=== PATIENT | male | born 1995 | race Caucasian/White ===

== ENCOUNTER 2016-03-25 04:43 | Emergency (ER) | payer BC ==
[~2016-03-25] VITALS: Ht 170.2 cm; Wt 56.8 kg
[~2016-03-25 04:43] MED LIST: OXYC1TAB3 PO; PRED20TA PO
[2016-03-25 04:45] VITALS: Ht 170.2 cm; Wt 56.8 kg
[2016-03-25] MEDS ORDERED: SODIUM CHLORIDE 0.9% 1000ML 1,000 ML IV STA (04:51)
[2016-03-25] MEDS ORDERED: ONDANSETRON INJ 2 MG/ML 2 ML VIAL IV STA (04:51)
[2016-03-25 05:13] LABS: BASO % 0.3 %; BASO ABS # 0.02 K/uL (0-0.2); COMPLETE YES; EOS % 1.3 %; HEMATOCRIT 45.6 % (42-52); IG% 0.1 %; LYMPH % 28.2 %; LYMPH ABS # 2.15 K/uL (1.2-3.4); MEAN CORPUSCULAR HEMOGLOBIN 29.7 pg (25-34); MEAN CORPUSCULAR HGB CONC 33.8 g/dl (32-36); MEAN PLATELET VOLUME 8.9 fL (7.4-10.4); MONO % 9.4 %; NEUT % 60.7 %; PLATELET COUNT 338 K/uL (130-400); RED BLOOD COUNT 5.18 M/uL (4.7-6.1); WHITE BLOOD COUNT 7.63 K/uL (4.8-10.8)
[2016-03-25] MEDS ORDERED: HYDROmorphone INJ 0.5 MG/0.5 ML SYR IV STA (05:17)
[2016-03-25 05:22] LABS: PARTIAL THROMBOPLASTIN RATIO 1.2; PROTHROMBIN TIME (PATIENT) 10.8 SECONDS (9.0-12.0)
[2016-03-25] MEDS ORDERED: ACET-1311 PO (05:22)
[2016-03-25] MEDS ORDERED: IBUP-1450 PO (05:22)
[2016-03-25 05:36] LABS: BUN/CREATININE RATIO 10.4 (10-20); CALCIUM 9.4 mg/dl (8.5-10.1); CREATININE 1.2 mg/dl (0.60-1.40); POTASSIUM 3.8 mmol/L (3.5-5.1)
[2016-03-25] MEDS ORDERED: SUCCINYLCHOLINE CHLORIDE 20 MG/ML 10 ML VIAL IV ONE (05:44)
[2016-03-25] MEDS ORDERED: PROPOFOL IV EMULSION 10 MG/ML 20 ML VIAL IV ONE (05:44)
[2016-03-25] MEDS ORDERED: LIDOCAINE HCL 2% 2 ML VIAL (20MG/ML) ONE (05:44)
[2016-03-25 05:45] VITALS: O2SAT 100
[2016-03-25] MEDS ORDERED: MIDAZOLAM HCL 1 MG/ML 2ML VIAL ONE (05:45)
[2016-03-25] MEDS ORDERED: FENTANYL CITRATE INJ 50 MCG/1 ML 2 ML VIAL ONE (05:46)
--- NOTE | 2016-03-25 05:47 | History and Physical ---
History & Physical Date Mar 25, 2016. Chief Complaint Tonsillar bleed History of Present Illness The patient is a 20 year old male with complaints of acute tonsillar bleed Past Medical/Surgical History Medical Problems: (1) Renal agenesis Surgical Problems: (1) S/P wisdom tooth extraction Additional History Hepatic Disease: No Endocrine Disorder: No Kidney Disease: No Hypertension: No Heart Disease: No Bleeding Tendencies: No Infectious Diseases: No Allergies Coded Allergies: No Known Allergies (Unverified , 03/25/16) Home Medications Scheduled Acetaminophen (Tylenol), 650 MG PO DIRECTED Scheduled PRN Ibuprofen (Motrin), 200-600 MG PO DIRECTED PRN for Pain or Fever Physical Examination Skin: warm/dry, no rash Eyes: normal inspection, EOMI, sclerae normal ENT: normal ENT inspection, pharynx normal, + pertinent finding (clot left fossa, BRB) Head: normocephalic, atraumatic Neck: supple, no adenopathy, trachea midline Respiratory/Chest: lungs clear, normal breath sounds, no respiratory distress Cardiovascular: regular rate, rhythm, no edema, no murmur Abdomen / GI: normal bowel sounds, non tender Back: normal inspection Extremities: normal inspection, normal range of motion Neurologic/Psych: no motor/sensory deficits, alert, normal reflexes, oriented x 3 Diagnosis acute tonsillar bleed Plan of Treatment hemostasis of tonsillar bleed
[2016-03-25] MEDS ORDERED: HYDR1SOL10 PO (05:55)
[2016-03-25] MEDS ORDERED: SODIUM CHLORIDE 0.9% 1000ML 1,000 ML IV SCH (05:57)
--- NOTE | 2016-03-25 05:57 | Discharge Instructions ---
Discharge Instructions Admission Reason for Admission: S/P Tonsilectomy - Bleeding Discharge Discharge Diagnosis / Problem: same Discharge Goals Goal(s): Therapeutic intervention Activity Recommendations Activity Limitations: resume your previous activity . Instructions / Follow-Up Instructions / Follow-Up ACTIVITY RECOMMENDATIONS: * During the first few days, activities should be limited. * Stay indoors for several days. * After 48 hours, activity can gradually be increased to normal activity. RETURN TO SCHOOL/WORK: * Return to school or work in one week. * No physical education for two weeks. OVER THE COUNTER MEDICATIONS: * You may use Tylenol * Avoid aspirin or aspirin containing products, e.g. as they may increase bleeding. SPECIAL CARE INSTRUCTIONS: * Avoid coughing or clearing the throat. * Do not use a straw. * A sore throat is expected frequently accompanied by pain radiating to the ears. This is normal. * Expect bad breath until "scabs" are healed. * Notify the doctor if bleeding occurs, vomiting, temperature greater than 101 degrees Fahrenheit. Call or cell phone: . * If bleeding occurs, it is usually in the first 24 hours or after the 5th day. If unable to reach the doctor, go to the nearest Emergency Department. Special Diet: * Fluids are very important and should be encouraged to maintain adequate hydration. * To maintain nutrition, eat soft foods and after 48 hours the consistency of foods can be increased. Examples are jello, soup, pasta, ice cream and mashed foods. FOLLOW UP VISIT: Follow-up visit with Dr. Larsen in 2 weeks. Please call to schedule if not already scheduled. Current Hospital Diet Patient's current hospital diet: Discharge Diet Recommended Diet: Regular Diet, Clear Liquid Diet Diet Texture: Mechanical Soft (ground) Pending Studies Studies pending at discharge: no Medical Emergencies . Who to Call and When: Medical Emergencies: If at any time you feel your situation is an emergency, please call [phone] immediately. . Non-Emergent Contact Non-Emergency issues call your: Primary Care Provider . "Provider Documentation" section prepared by Lena Larsen. VTE Core Measure Inpt VTE Proph given/why not?: Treatment not indicated [place] Drug Monitoring Program Search Results: no issues identified
[2016-03-25] MEDS ORDERED: ACETAMINOPHEN/HYDROCODONE ELIX 15 ML/CUP UDP PO PRN (06:00)
[2016-03-25] MEDS ORDERED: BUPIVACAINE 0.5% W/EPI 1:200,000 INJ ONE (06:39)
[2016-03-25] MEDS ORDERED: OXYC-57 PO (07:00)
[2016-03-25 07:30] VITALS: O2SAT 98
[2016-03-25] MEDS ORDERED: MoRPHine SULFATE 4 MG/ML 1 ML CARP\\VIAL ONE (07:34)
--- NOTE | 2016-03-25 07:43 | Anesthesiology Progress Note ---
Anesthesia Post Op Note Date & Time Mar 25, 2016 at 07:42 Vital Signs Pain Intensity: 6.0 Vital Signs Past 12 Hours Date Time Temp Pulse Resp B/P Pulse Ox O2 Delivery O2 Flow Rate FiO2 03/25/16 07:30 68 17 135/85 98 Room Air 03/25/16 07:20 73 16 138/95 99 Room Air 03/25/16 07:13 67 19 136/92 100 Mask 10 03/25/16 07:03 36.1 78 15 135/84 100 Mask 10 03/25/16 05:45 73 17 116/68 100 03/25/16 05:01 73 03/25/16 05:01 100 Room Air 03/25/16 04:45 36.5 104 20 127/66 99 Room Air Notes Mental Status: alert / awake / arousable, participated in evaluation Pt Amnestic to Procedure: Yes Nausea / Vomiting: adequately controlled Pain: adequately controlled Airway Patency, RR, SpO2: stable & adequate BP & HR: stable & adequate Hydration State: stable & adequate Anesthetic Complications: no major complications apparent
[2016-03-25 07:45] VITALS: BP 138/78; PULSE 66; TEMP 36.5
[2016-03-25] MEDS ORDERED: EpHEDrine SULFATE INJ 50 MG/ML AMP IV PRN (07:45)
[2016-03-25] MEDS ORDERED: FENTANYL CITRATE INJ 50 MCG/1 ML 2 ML VIAL IV PRN (07:45)
[2016-03-25] MEDS ORDERED: ATROPINE SULFATE 0.1 MG/ML 5ML SYR IV PRN (07:45)
[2016-03-25] MEDS ORDERED: NURSING VERBAL MED ORDER ONE (07:45)
--- NOTE | 2016-03-25 07:56 | EMERGENCY ROOM VISIT NOTE ---
History Report prepared by Chavez: Lyndon Mckinley Under the Supervision of: Dr. Bobby Pratt M.D. First contact with patient: 04:48 Chief Complaint: THROAT PAIN/INJURY Stated Complaint: S/P TONSILECTOMY - BLEEDING History of Present Illness The patient is a 20 year old male who presents to the Emergency Room with complaints of persistent bleeding s/p tonsillectomy that started last night. The patient was diagnosed with tonsillitis and a tonsillar abscess on February 08. He had the surgery with Dr. Shore one week ago. The patient vomited secondary to the bleeding. The patient denies any fevers. The patient has not been taking Aspirin. Source of History: patient Onset: last night Position: other (tonsillectomy site) Quality: other (bleeding) Timing: other (persistent) Associated Symptoms: No fevers, No vomiting Review of Systems See HPI for pertinent positives & negatives. A total of 10 systems reviewed and were otherwise negative. Past Medical & Surgical Medical Problems: (1) Renal agenesis Surgical Problems: (1) S/P wisdom tooth extraction Family History No pertinent family history Social History Smoking Status: Never Smoker Alcohol Use: occasionally Marital Status: single Housing Status: lives with roommate Occupation Status: [employer] student Current/Historical Medications Scheduled Acetaminophen (Tylenol), 650 MG PO DIRECTED Scheduled PRN Hydrocodone-Acetaminophen (Hydrocodone/Acetami 7.5/325MG 15ML), 15 ML PO Q4H PRN Ibuprofen (Motrin), 200-600 MG PO DIRECTED PRN for Pain or Fever Oxycodone/Acetaminophen 5MG/325MG (Percocet 5MG/325MG), 1-2 TABLETS PO Q4H PRN for Pain Allergies Coded Allergies: No Known Allergies (Unverified , 03/25/16) Physical Exam Vital Signs Date Time Temp Pulse Resp B/P Pulse Ox O2 Delivery O2 Flow Rate FiO2 03/25/16 07:30 68 17 135/85 98 Room Air 03/25/16 07:20 73 16 138/95 99 Room Air 03/25/16 07:13 67 19 136/92 100 Mask 10 03/25/16 07:03 36.1 78 15 135/84 100 Mask 10 03/25/16 05:45 73 17 116/68 100 03/25/16 05:01 73 03/25/16 05:01 100 Room Air 03/25/16 04:45 36.5 104 20 127/66 99 Room Air Physical Exam GENERAL: Patient is uncomfortable appearing in moderate distress. HEENT: No acute trauma, normocephalic atraumatic, mucous membranes moist, no nasal congestion, no scleral icterus. Blood throughout the oropharynx, large bloody clot on the left tonsillar bed, some scar tissue and granulation tissue at the right tonsillar bed. NECK: No stridor, no adenopathy, no meningismus, trachea is midline. LUNGS: No dyspnea. Clear to auscultation and equal bilaterally. No wheeze, no rhonchi. HEART: Mildly tachycardic, regular rhythm. No murmurs, rubs, gallops appreciated. ABDOMEN: Soft, nontender, bowel sounds positive, no masses appreciated, no peritonitis. BACK: No midline tenderness, no CVA tenderness EXTREMITIES: Normal motion all extremities, no cyanosis, no edema. NEUROLOGIC: Alert and oriented, no acute motor or sensory deficits, no focal weakness, cranial nerves grossly intact. SKIN: No rash, no jaundice, no diaphoresis. Medical Decision & Procedures Laboratory Results 03/25/16 04:55 Red Blood Count 5.18, Mean Corpuscular Volume 88.0, Mean Corpuscular Hemoglobin 29.7, Mean Corpuscular Hemoglobin Concent 33.8, Mean Platelet Volume 8.9, Neutrophils (%) (Auto) 60.7, Lymphocytes (%) (Auto) 28.2, Monocytes (%) (Auto) 9.4, Eosinophils (%) (Auto) 1.3, Basophils (%) (Auto) 0.3, Neutrophils # (Auto) 4.63, Lymphocytes # (Auto) 2.15, Monocytes # (Auto) 0.72, Eosinophils # (Auto) 0.10, Basophils # (Auto) 0.02 03/25/16 04:55 Test 03/25/16 04:55 White Blood Count 7.63 K/uL (4.8-10.8) Red Blood Count 5.18 M/uL (4.7-6.1) Hemoglobin 15.4 g/dL (14.0-18.0) Hematocrit 45.6 % (42-52) Mean Corpuscular Volume 88.0 fL (80-100) Mean Corpuscular Hemoglobin 29.7 pg (25-34) Mean Corpuscular Hemoglobin Concent 33.8 g/dl (32-36) Platelet Count 338 K/uL (130-400) Mean Platelet Volume 8.9 fL (7.4-10.4) Neutrophils (%) (Auto) 60.7 % Lymphocytes (%) (Auto) 28.2 % Monocytes (%) (Auto) 9.4 % Eosinophils (%) (Auto) 1.3 % Basophils (%) (Auto) 0.3 % Neutrophils # (Auto) 4.63 K/uL (1.4-6.5) Lymphocytes # (Auto) 2.15 K/uL (1.2-3.4) Monocytes # (Auto) 0.72 K/uL (0.11-0.59) Eosinophils # (Auto) 0.10 K/uL (0-0.5) Basophils # (Auto) 0.02 K/uL (0-0.2) RDW Standard Deviation 39.4 fL (36.4-46.3) RDW Coefficient of Variation 12.3 % (11.5-14.5) Immature Granulocyte % (Auto) 0.1 % Immature Granulocyte # (Auto) 0.01 K/uL (0.00-0.02) Prothrombin Time 10.8 SECONDS (9.0-12.0) Prothromb Time International Ratio 1.0 (0.9-1.1) Activated Partial Thromboplast Time 31.1 SECONDS (21.0-31.0) Partial Thromboplastin Ratio 1.2 Anion Gap 10.0 mmol/L (3-11) Est Creatinine Clear Calc Drug Dose 79.5 ml/min Estimated GFR () 101.0 Estimated GFR (Non- 87.1 BUN/Creatinine Ratio 10.4 (10-20) Calcium Level 9.4 mg/dl (8.5-10.1) Laboratory results as reviewed by me. Medications Administered Medications (Trade) Dose Ordered Sig/Vahid Route Start Time Stop Time Status Last Admin Dose Admin Sodium Chloride (Nss 1000ml) 1,000 ml @ 999 mls/hr Q1H1M STAT IV 03/25/16 04:51 03/25/16 05:51 DC 03/25/16 04:59 999 MLS/HR Ondansetron HCl (Zofran Inj) 4 mg NOW STAT IV 03/25/16 04:51 03/25/16 04:53 DC 03/25/16 04:59 4 MG Hydromorphone HCl (Dilaudid Inj) 0.5 mg NOW STAT IV 03/25/16 05:17 03/25/16 05:18 DC 03/25/16 05:20 0.5 MG Bupivacaine HCl/ Epinephrine Bitart (Bupivacaine 0.5% W/Epi 1:200,000) 7 ml ONE ONCE INJ 03/25/16 06:39 03/25/16 06:40 DC 03/25/16 06:39 7 ML Morphine Sulfate (MoRPHine SULFATE INJ) 4 mg STK-MED ONCE .ROUTE 03/25/16 07:34 03/25/16 07:35 DC 03/25/16 07:37 4 MG ED Course 0445: The patient was evaluated in room B4b. A complete history and physical exam was performed. 0450: On-call ENT was paged. 0451: Zofran 4 mg IV, NSS 1000 ml @ 999 mls/hr. 0500: Spoke with DESIRAE Webb. He asked me to call the OR to start preparing for surgery. 0517: Dilaudid 0.5 mg IV. 0530: The patient is on his way to the operating room. Medical Decision 20 yr old male arrives with acute tonsillectomy bleed 6 days post tonsillectomy. On exam he has large left tonsillar fossa clot with some continued bleeding. Bleeding improving while in department but with clot qill need operative evaluation. ENT in emergently and patient taken to OR for further evaluation. Stable throughout ED stay and protecting airway. Labs unremarkable and patient stable at time of transfer to OR. Consults Time Called: 045 Consulting Physician: DESIRAE Webb Returned Call: [phone]: Spoke with DESIRAE Webb. He asked me to call the OR to start preparing for surgery. Impression Primary Impression: Post-tonsillectomy hemorrhage Critical Care I have personally spent greater than 35 minutes of critical care time in the direct management of this patient. This was a life/limb threatening event. This includes time spent evaluating patient, direct bedside care, chart review, placing orders, interpretation of diagnostic studies, discussion with consultants, patient, and family members, as well as other required patient management activities. This 35 minutes is in excess of all separately billable procedures. Scribe Attestation The scribe's documentation has been prepared under my direction and personally reviewed by me in its entirety. I confirm that the note above accurately reflects all work, treatment, procedures, and medical decision making performed by me. Departure Information Dispostion Being Evaluated By Surgeon Prescriptions Oxycodone/Acetaminophen 5MG/325MG (PERCOCET 5MG/325MG) Tab 1-2 TABLETS PO Q4H Y for Pain, #30 TAB Prov: Lena Larsen M.D. 03/25/16 Hydrocodone-Acetaminophen (HYDROCODONE/ACETAMI 7.5/325MG 15ML) 1 Cayla Cayla 15 ML PO Q4H Y, #120 ML Prov: Lena Larsen M.D. 03/25/16 Referrals Marbin Díaz, D.O. (PCP) Patient Instructions A Signature Page, My [facility]
[2016-03-25 08:13] VITALS: BP 125/64; PULSE 66; TEMP 36.5
[2016-03-25 08:45] VITALS: BP 128/68; PULSE 70; TEMP 36.9
[2016-03-25] MEDS ORDERED: MoRPHine SULFATE 4 MG/ML 1 ML CARP\\VIAL IV PRN (08:45)
--- NOTE | 2016-03-25 13:55 | OPERATIVE REPORT ---
DATE OF OPERATION: 03/25/2016 PREOPERATIVE DIAGNOSIS: Acute tonsillar bleed. POSTOPERATIVE DIAGNOSIS: Same. PROCEDURE: Hemostasis of acute tonsillar bleed. COMPLICATIONS: None. BLOOD LOSS: 50 mL. HISTORY OF PRESENT ILLNESS: A 20-year-old who underwent tonsillectomy [address] Shore at [facility], developed acute bleeding of approximately 500 mL this evening. PROCEDURE: The patient brought in to operative room, placed in supine position. General endotracheal anesthesia was induced, prepped, draped in usual sterile manner. Mouth gag was placed. A large clot in the left tonsillar fossa was removed. Multiple bleeding sites were identified, specifically the one of the superior pole site where the suture had come loose, the suture was removed and the bleeding sites were cauterized using the suction cautery with good control. There were also smaller mucosal bleeding sites on the right tonsillar fossa, which were cauterized using the suction cautery. The pharynx was irrigated clean with saline. The patient tolerated the procedure well and was taken to recovery area in satisfactory condition. I attest to the content of the Intraoperative Record and any orders documented therein. Any exceptio ns are noted below.
== END 2016-03-25 05:30 | disposition home or self-care (01) ==
LOC: C.EDB 04:45
DX: K91.840 Postprocedural hemorrhage of a digestive system organ or structure following a digestive system procedure (principal); Y83.8 Other surgical procedures as the cause of abnormal reaction of the patient, or of later complication, without mention of misadventure at the time of the procedure; Q60.2 Renal agenesis, unspecified

== ENCOUNTER 2016-10-09 12:08 | Emergency (ER) | payer BC ==
[~2016-10-09] VITALS: Ht 170.2 cm; Wt 69.1 kg
[~2016-10-09 12:08] MED LIST changes: +ACET-1311 PO; -OXYC1TAB3 PO; -PRED20TA PO
[2016-10-09 12:23] VITALS: TEMP 37.1; Ht 170.2 cm; Wt 69.1 kg
[2016-10-09] MEDS ORDERED: SODIUM CHLORIDE 0.9% 1000ML 1,000 ML IV STA (12:51)
[2016-10-09 13:03] LABS: URINE APPEARANCE CLEAR (CLEAR); URINE BILIRUBIN NEG (NEG); URINE COLOR YELLOW; URINE EPITHELIAL CELL AUTO 0-5 /lpf (0-5); URINE NITRITE NEG (NEG); URINE PH 6.5 (4.5-7.5); URINE SPECIFIC GRAVITY 1.019 (1.000-1.030); UROBILINOGEN NEG (NEG); ZZUR CULT IF INDIC CLEAN CATCH NO
--- NOTE | 2016-10-09 13:06 | EMERGENCY ROOM VISIT NOTE ---
History Report prepared by Chavez: Christal Poole Under the Supervision of: Dr. Nemesio Joaquin M.D. First contact with patient: 12:41 Chief Complaint: FLANK PAIN Stated Complaint: R SIDE PAIN- REFERRED BY History of Present Illness The patient is a 21 year old male who presents to the Emergency Room with complaints of intermittent right flank pain that started 4 days ago. He has not noticed that the pain is associated with anything specific. The patient states that the pain started to wrap into the right side of his abdomen today so he felt that he should come in for further evaluation. He denies any urinary symptoms including hematuria. The patient states that his bowel movements have been normal. The patient denies any pain with deep breathing. The patient has been outside in the heat a decent amount recently and he states that he is trying to stay hydrated. 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 The patient still has his gallbladder and appendix. Source of History: patient Onset: 4 days ago Position: other (right flank) Quality: other (right flank pain) Timing: intermittent Associated Symptoms: No urinary symptoms (hematuria) Note: normal bowel movements, no pain with deep breathing Review of Systems See HPI for pertinent positives & negatives. A total of 10 systems reviewed and were otherwise negative. Past Medical & Surgical Medical Problems: (1) Renal agenesis Surgical Problems: (1) S/P wisdom tooth extraction Family History No pertinent family history Social History Smoking Status: Never Smoker Alcohol Use: occasionally Marital Status: single Housing Status: lives with roommate Occupation Status: [employer] student Current/Historical Medications No Active Prescriptions or Reported Meds Allergies Coded Allergies: No Known Allergies (Unverified , 10/09/16) Physical Exam Vital Signs Date Time Temp Pulse Resp B/P (MAP) Pulse Ox O2 Delivery O2 Flow Rate FiO2 10/09/16 15:20 66 18 119/68 99 10/09/16 14:14 64 18 115/79 100 Room Air 10/09/16 12:23 37.1 80 18 136/70 98 Room Air Physical Exam GENERAL: Patient is a healthy-appearing well-nourished male HEAD: Normocephalic atraumatic EYES: Ocular movements intact pupils equal and react to light OROPHARYNX mucous membranes are moist no exudates present no erythema or edema present NECK: Supple no nuchal rigidity CHEST: Good equal expansion LUNGS: Clear and equal to auscultation CARDIAC: Normal S1 and S2 ABDOMEN: Soft nontender no guarding BACK: No CVA tenderness EXTREMITIES: No pain upon palpation normal muscle strength in all groups no clubbing cyanosis or edema NEURO: Patient is following commands and answering questions appropriately. Alert and oriented x3 Cranial Nerves 2-12 grossly intact Medical Decision & Procedures ER Provider Diagnostic Interpretation: Radiology results as stated below per my review and radiologist interpretation: KUB FINDINGS: There is nonspecific faint 6 mm radiodensity within the left upper quadrant of the abdomen which may reflect a vascular calcification, ingested material or artifact. The bowel gas pattern is nonobstructive. No urolith is identified. Lung bases are clear. No fracture. IMPRESSION: 1. No urolith identified. 2. Nonobstructive bowel gas pattern. The above report was generated using voice recognition software. It may contain grammatical, syntax or spelling errors. Electronically signed by: Ji Alcantara M.D. 10/09/2016 1:34 PM Dictated Date/Time: 10/09/2016 1:31 PM Laboratory Results 10/09/16 13:15 Red Blood Count 5.28, Mean Corpuscular Volume 88.4, Mean Corpuscular Hemoglobin 30.1, Mean Corpuscular Hemoglobin Concent 34.0, Mean Platelet Volume 9.6, Neutrophils (%) (Auto) 76.3, Lymphocytes (%) (Auto) 15.9, Monocytes (%) (Auto) 6.7, Eosinophils (%) (Auto) 0.5, Basophils (%) (Auto) 0.3, Neutrophils # (Auto) 5.56, Lymphocytes # (Auto) 1.16, Monocytes # (Auto) 0.49, Eosinophils # (Auto) 0.04, Basophils # (Auto) 0.02 10/09/16 13:15 Test 10/09/16 12:35 10/09/16 13:15 Urine Color YELLOW Urine Appearance CLEAR (CLEAR) Urine pH 6.5 (4.5-7.5) Urine Specific [place] 1.019 (1.000-1.030) Urine Protein NEG (NEG) Urine Glucose (UA) NEG (NEG) Urine Ketones NEG (NEG) Urine Occult Blood NEG (NEG) Urine Nitrite NEG (NEG) Urine Bilirubin NEG (NEG) Urine Urobilinogen NEG (NEG) Urine Leukocyte Esterase NEG (NEG) Urine WBC (Auto) 1-5 /hpf (0-5) Urine RBC (Auto) 0-4 /hpf (0-4) Urine Hyaline Casts (Auto) 0 /lpf (0-5) Urine Epithelial Cells (Auto) 0-5 /lpf (0-5) Urine Bacteria (Auto) NEG (NEG) White Blood Count 7.29 K/uL (4.8-10.8) Red Blood Count 5.28 M/uL (4.7-6.1) Hemoglobin 15.9 g/dL (14.0-18.0) Hematocrit 46.7 % (42-52) Mean Corpuscular Volume 88.4 fL (80-100) Mean Corpuscular Hemoglobin 30.1 pg (25-34) Mean Corpuscular Hemoglobin Concent 34.0 g/dl (32-36) Platelet Count 162 K/uL (130-400) Mean Platelet Volume 9.6 fL (7.4-10.4) Neutrophils (%) (Auto) 76.3 % Lymphocytes (%) (Auto) 15.9 % Monocytes (%) (Auto) 6.7 % Eosinophils (%) (Auto) 0.5 % Basophils (%) (Auto) 0.3 % Neutrophils # (Auto) 5.56 K/uL (1.4-6.5) Lymphocytes # (Auto) 1.16 K/uL (1.2-3.4) Monocytes # (Auto) 0.49 K/uL (0.11-0.59) Eosinophils # (Auto) 0.04 K/uL (0-0.5) Basophils # (Auto) 0.02 K/uL (0-0.2) RDW Standard Deviation 39.2 fL (36.4-46.3) RDW Coefficient of Variation 12.4 % (11.5-14.5) Immature Granulocyte % (Auto) 0.3 % Immature Granulocyte # (Auto) 0.02 K/uL (0.00-0.02) Anion Gap 7.0 mmol/L (3-11) Est Creatinine Clear Calc Drug Dose 84.8 ml/min Estimated GFR () 91.0 Estimated GFR (Non- 78.5 BUN/Creatinine Ratio 9.5 (10-20) Calcium Level 9.7 mg/dl (8.5-10.1) Total Bilirubin 1.4 mg/dl (0.2-1) Direct Bilirubin 0.3 mg/dl (0-0.2) Aspartate Amino Transf (AST/SGOT) 14 U/L (15-37) Alanine Aminotransferase (ALT/SGPT) 25 U/L (12-78) Alkaline Phosphatase 61 U/L (45-117) Total Creatine Kinase 104 U/L (39-308) Total Protein 7.0 gm/dl (6.4-8.2) Albumin 4.3 gm/dl (3.4-5.0) Lipase 178 U/L (73-393) Labs reviewed by ED physician. Medications Administered Medications (Trade) Dose Ordered Sig/Vahid Route Start Time Stop Time Status Last Admin Dose Admin Sodium Chloride 1,000 ml @ 999 mls/hr Q1H1M STAT IV 10/09/16 12:51 10/09/16 13:51 DC 10/09/16 13:13 999 MLS/HR Potassium Chloride (Klor-Con M10) 40 meq NOW STAT PO 10/09/16 13:53 10/09/16 13:54 DC 10/09/16 14:11 40 MEQ ED Course 1242: Past medical records reviewed. The patient was evaluated in room B9. A complete history and physical examination was performed. 1251: Ordered Sodium Chloride 1000 ml @ 999 mls/hr IV 1353: Ordered Potassium Chloride 40 meq PO Medical Decision Differential diagnosis: Etiologies such as renal colic, appendicitis, diverticulitis, mesenteric ischemia, aortic pathology, infections, inflammatory bowel disease, PUD, biliary pathology, UTI, as well as others were entertained. This is a 21-year-old male who presents emergency department complaining of right-sided flank pain. Using shared medical decision making with both the patient as well as his mother and based on the benign abdominal examination we felt that a CAT scan would be a very low yield study in comparison to the amount of radiation the patient would be exposed to. The patient has a benign soft abdomen. Serial abdominal examinations were performed on the patient in the emergency department and no tended patient exhibit a surgical abdomen or even abdominal tenderness. The patient has a history of all having 1 kidney stone therefore he was sent for an ultrasound of the kidney. There is no evidence of hydronephrosis and there is no evidence of obstruction or stone on KUB. I do feel that the patient is well enough to be discharged home however I recommended a MiraLAX cleanout over the weekend to see if this helps with the patient's pain. The patient will return to the emergency department if he develops fevers or the pain become severe. Patient was in agreement with the treatment plan. Medication Reconcilliation Current Medication List: was personally reviewed by me Blood Pressure Screening Patient's blood pressure: Normal blood pressure Impression Primary Impression: Right flank pain Scribe Attestation The scribe's documentation has been prepared under my direction and personally reviewed by me in its entirety. I confirm that the note above accurately reflects all work, treatment, procedures, and medical decision making performed by me. Departure Information Dispostion Home / Self-Care Prescriptions No Active Prescriptions or Reported Meds Referrals Marbin Díaz, D.O. (PCP) Patient Instructions My [facility]
[2016-10-09 13:18] LABS: MANUAL MICROSCOPIC REQUIRED? NO; REVIEW REQ? NO
[2016-10-09 13:27] LABS: BASO % 0.3 %; BASO ABS # 0.02 K/uL (0-0.2); COMPLETE YES; EOS % 0.5 %; HEMATOCRIT 46.7 % (42-52); IG% 0.3 %; LYMPH % 15.9 %; LYMPH ABS # 1.16 K/uL (1.2-3.4); MEAN CELL VOLUME 88.4 fL (80-100); MEAN CORPUSCULAR HEMOGLOBIN 30.1 pg (25-34); MEAN PLATELET VOLUME 9.6 fL (7.4-10.4); MONO % 6.7 %; NEUT % 76.3 %; PLATELET COUNT 162 K/uL (130-400); RED BLOOD COUNT 5.28 M/uL (4.7-6.1); WHITE BLOOD COUNT 7.29 K/uL (4.8-10.8)
--- NOTE | 2016-10-09 13:35 | DIAGNOSTIC IMAGING REPORT ---
KUB HISTORY: 21 years-old Male acute right sided flank pain COMPARISON: None available TECHNIQUE: KUB radiograph FINDINGS: There is nonspecific faint 6 mm radiodensity within the left upper quadrant of the abdomen which may reflect a vascular calcification, ingested material or artifact. The bowel gas pattern is nonobstructive. No urolith is identified. Lung bases are clear. No fracture. IMPRESSION: 1. No urolith identified. 2. Nonobstructive bowel gas pattern. The above report was generated using voice recognition software. It may contain grammatical, syntax or spelling errors. Electronically signed by: Ji Alcantara M.D. 10/09/2016 1:34 PM Dictated Date/Time: 10/09/2016 1:31 PM
[2016-10-09 13:48] LABS: BUN/CREATININE RATIO 9.5 (10-20); CALCIUM 9.7 mg/dl (8.5-10.1); CREATININE 1.3 mg/dl (0.60-1.40); POTASSIUM 3.4 mmol/L (3.5-5.1)
[2016-10-09] MEDS ORDERED: POTASSIUM CHLORIDE 10 MEQ TABCR PO STA (13:53)
--- NOTE | 2016-10-09 15:04 | DIAGNOSTIC IMAGING REPORT ---
(RENAL)RETROPERITONEAL COMP HISTORY: 21 years-old Male Pt c/o Rt sided flank pain . Patient reports single kidney. COMPARISON: KUB radiograph 10/09/2016 TECHNIQUE: Multiple real-time sonographic images of the kidneys and urinary bladder were obtained assessing grayscale appearance and color flow. FINDINGS: Right kidney measures 12.4 cm in length and appears to be within normal limits without hydronephrosis, renal calculi or focal mass. Bowel gas is seen within the left upper abdomen. No left-sided kidney identified. The urinary bladder is unremarkable. Right-sided ureteral jet is documented. IMPRESSION: 1. Normal sonographic appearance of the right kidney and urinary bladder without hydronephrosis or urinary calculi. 2. Left kidney not visualized. The above report was generated using voice recognition software. It may contain grammatical, syntax or spelling errors. Electronically signed by: Ji Alcantara M.D. 10/09/2016 3:02 PM Dictated Date/Time: 10/09/2016 2:59 PM
[2016-10-09 15:20] VITALS: BP 119/68; PULSE 66; O2SAT 99
== END 2016-10-09 15:33 | disposition home or self-care (01) ==
LOC: C.EDB 12:10
DX: R10.31 Right lower quadrant pain (principal); R10.11 Right upper quadrant pain; Q60.0 Renal agenesis, unilateral

== ENCOUNTER 2017-11-06 12:56 | Emergency (ER) | payer BC, OTHER ==
[~2017-11-06] VITALS: Ht 172.7 cm; Wt 64.7 kg
[2017-11-06 13:08] VITALS: TEMP 37; Ht 172.7 cm; Wt 64.7 kg
[2017-11-06] MEDS ORDERED: ONDANSETRON INJ 2 MG/ML 2 ML VIAL IV STA (13:22)
[2017-11-06] MEDS ORDERED: SODIUM CHLORIDE 0.9% 1000ML 1,000 ML IV STA (13:22)
--- NOTE | 2017-11-06 13:26 | EMERGENCY ROOM VISIT NOTE ---
History Report prepared by Chavez: Herbert Garcia Under the Supervision of: Dr. Richy Lee M.D. First contact with patient: 13:15 Chief Complaint: ABDOMINAL PAIN Stated Complaint: GUT PAIN,INTERNAL BLEEDING,BLADCK STOOL,LOSS BREAT History of Present Illness The patient is a 22 year old male who presents to the Emergency Room with complaints of constant abdominal pain and intermittent vomiting that have been present since Wednesday night, 3 days ago. The patient states that on Wednesday night he vomited for 45 minutes uncontrollably. He is having a constant "dull" pain in the right lower quadrant, as well as a "sharp" pain that is precipitated /worsened with deep inhalation. He notes that his stools have been "dark black" and his vomit was black as well. He denies any hematochezia or hematemesis. He also complains that when he was vomiting he could feel some pain in his testicles. The patient admits that on Wednesday when the symptoms began he drank about 3 16 ounce beers. He also ate spicy chicken wings. He denies any recent long trips or travels. He is not coughing. The patient was only born with one kidney. Source of History: patient Onset: 3 days ago Position: abdomen Quality: sharp, dull Timing: constant, intermittent Modifying Factors (Worsening): breathing (deep inhalation) Associated Symptoms: + vomiting, + melena, No hematochezia Review of Systems See HPI for pertinent positives and negatives. A total of ten systems were reviewed and were otherwise negative. Past Medical & Surgical Medical Problems: (1) Renal agenesis Surgical Problems: (1) S/P wisdom tooth extraction Family History No pertinent family history Social History Smoking Status: Current Some Day Smoker Alcohol Use: occasionally Marital Status: single Housing Status: lives with roommate Occupation Status: [employer] student Current/Historical Medications No Active Prescriptions or Reported Meds Allergies Coded Allergies: No Known Allergies (Unverified , 11/06/17) Physical Exam Vital Signs Date Time Temp Pulse Resp B/P (MAP) Pulse Ox O2 Delivery O2 Flow Rate FiO2 11/06/17 14:55 69 20 119/67 98 Room Air 11/06/17 13:52 66 20 132/75 98 Room Air 11/06/17 13:08 37.0 93 18 122/70 99 Room Air Physical Exam Physical Exam GENERAL: He is oriented to person, place, and time. He appears well-developed and well-nourished. He does not appear distressed. HENT: Exam performed. Head: Normocephalic and atraumatic. Right Ear: External ear normal. No mastoid tenderness. Left Ear: External ear normal. No mastoid tenderness. Mouth/Throat: The oropharynx is clear and moist. No trismus in the jaw. No dental abscesses or uvula swelling. No oropharyngeal exudate or tonsillar abscesses. EYES: Conjunctivae and EOM are normal. Pupils are equal, round, and reactive to light. Right eye exhibits no discharge. Left eye exhibits no discharge. No scleral icterus. NECK: Normal range of motion. Neck supple. No JVD present. No spinous process tenderness present. No carotid bruit present. No rigidity. No tracheal deviation and normal range of motion present. No Brudzinski's sign and no Kernig 's sign noted. CV: Normal rate, regular rhythm, normal heart sounds and intact distal pulses. There is no peripheral edema. Palpable radial pulses bue. PULM/CHEST: Effort normal and breath sounds normal. No respiratory distress. No stridor. He has no wheezes. He has no rales. Chest Wall: He exhibits no tenderness. ABD: The abdomen is soft. Bowel sounds are normal. He has no distension. No mass is present. There is no tenderness. There is no rebound, no guarding, no Lozano's sign and no tenderness at McBurney's point. Rovsig negative. MUSC/SKEL: Normal range of motion. There is no peripheral edema, tenderness or deformity. LYMPH: No cervical adenopathy. NEURO: He is alert and oriented to person, place, and time. He has normal strength. No cranial nerve deficit or sensory deficit. Coordination and gait normal. GCS eye subscore is 4. GCS verbal subscore is 5. GCS motor subscore is 6. Cerebellar tests wnl. SKIN: Skin is warm and dry. He is not diaphoretic. PSYCH: He has a normal mood and affect. Behavior is normal. Judgment and thought content normal. RECTAL: No hemorrhoids, Hemoccult negative. : No pain on palpation of either testicle, no lesions or ureteral discharge. Cremasteric reflex present bilaterally. Medical Decision & Procedures ER Provider Diagnostic Interpretation: Radiology results as stated below per my review and radiologist interpretation: ABDOMEN 2VIEW W/PA CHEST RTN CLINICAL HISTORY: 22 years-old Male presenting with vomiting abdominal pain. TECHNIQUE: PA view of the chest and supine and upright views of the abdomen were obtained. COMPARISON: 10/09/2016. FINDINGS: Cardiomediastinal silhouette normal. Lungs and pleural spaces clear. Mild gaseous distention of small bowel in the midabdomen. No bowel obstruction. No gross pneumoperitoneum. Allowing for bowel gas and stool, no calcifications to suggest nephrolithiasis. Osseous structures normal. IMPRESSION: 1. No acute cardiopulmonary disease. 2. Mild gaseous distention of small bowel. This may be normal or indicate mild ileus or enteritis. No bowel obstruction or free air. Electronically signed by: Ellis Spann M.D. 11/06/2017 2:32 PM Dictated Date/Time: 11/06/2017 2:30 PM Laboratory Results 11/06/17 13:33 Red Blood Count 5.35, Mean Corpuscular Volume 88.8, Mean Corpuscular Hemoglobin 30.7, Mean Corpuscular Hemoglobin Concent 34.5, Mean Platelet Volume 9.6, Neutrophils (%) (Auto) 68.8, Lymphocytes (%) (Auto) 23.6, Monocytes (%) (Auto) 7.2, Eosinophils (%) (Auto) 0.2, Basophils (%) (Auto) 0.2, Neutrophils # (Auto) 3.64, Lymphocytes # (Auto) 1.25, Monocytes # (Auto) 0.38, Eosinophils # (Auto) 0.01, Basophils # (Auto) 0.01 11/06/17 13:33 Test 11/06/17 13:33 White Blood Count 5.29 K/uL (4.8-10.8) Red Blood Count 5.35 M/uL (4.7-6.1) Hemoglobin 16.4 g/dL (14.0-18.0) Hematocrit 47.5 % (42-52) Mean Corpuscular Volume 88.8 fL (80-100) Mean Corpuscular Hemoglobin 30.7 pg (25-34) Mean Corpuscular Hemoglobin Concent 34.5 g/dl (32-36) Platelet Count 165 K/uL (130-400) Mean Platelet Volume 9.6 fL (7.4-10.4) Neutrophils (%) (Auto) 68.8 % Lymphocytes (%) (Auto) 23.6 % Monocytes (%) (Auto) 7.2 % Eosinophils (%) (Auto) 0.2 % Basophils (%) (Auto) 0.2 % Neutrophils # (Auto) 3.64 K/uL (1.4-6.5) Lymphocytes # (Auto) 1.25 K/uL (1.2-3.4) Monocytes # (Auto) 0.38 K/uL (0.11-0.59) Eosinophils # (Auto) 0.01 K/uL (0-0.5) Basophils # (Auto) 0.01 K/uL (0-0.2) RDW Standard Deviation 39.0 fL (36.4-46.3) RDW Coefficient of Variation 12.2 % (11.5-14.5) Immature Granulocyte % (Auto) 0.0 % Immature Granulocyte # (Auto) 0.00 K/uL (0.00-0.02) Urine Color YELLOW Urine Appearance CLEAR (CLEAR) Urine pH 7.5 (4.5-7.5) Urine Specific [place] 1.003 (1.000-1.030) Urine Protein NEG (NEG) Urine Glucose (UA) NEG (NEG) Urine Ketones NEG (NEG) Urine Occult Blood NEG (NEG) Urine Nitrite NEG (NEG) Urine Bilirubin NEG (NEG) Urine Urobilinogen NEG (NEG) Urine Leukocyte Esterase NEG (NEG) Anion Gap 7.0 mmol/L (3-11) Est Creatinine Clear Calc Drug Dose 95.5 ml/min Estimated GFR () 108.3 Estimated GFR (Non- 93.4 BUN/Creatinine Ratio 7.8 (10-20) Calcium Level 9.7 mg/dl (8.5-10.1) Total Bilirubin 1.4 mg/dl (0.2-1) Direct Bilirubin 0.3 mg/dl (0-0.2) Aspartate Amino Transf (AST/SGOT) 21 U/L (15-37) Alanine Aminotransferase (ALT/SGPT) 25 U/L (12-78) Alkaline Phosphatase 56 U/L (45-117) Total Protein 7.7 gm/dl (6.4-8.2) Albumin 4.7 gm/dl (3.4-5.0) Lipase 135 U/L (73-393) Laboratory results reviewed by me Medications Administered Medications (Trade) Dose Ordered Sig/Vahid Route Start Time Stop Time Status Last Admin Dose Admin Sodium Chloride 1,000 ml @ 999 mls/hr Q1H1M STAT IV 11/06/17 13:22 11/06/17 14:22 DC 11/06/17 13:22 999 MLS/HR ED Course 1317: The patient was evaluated in room C8. A complete history and physical exam was performed. 1322: Ordered Zofran 4 mg IV, Sodium Chloride 1000 mL @ 999 mL/hr IV. 1454: Vitals signs stable, serial abdominal exam within normal limits, Labs and imaging within normal limits, patient will be discharged with follow up PCP. DISCHARGE - Plan of care discussed with patient and questions answered. The patient was given both verbal and printed discharge instructions. The patient verbalized understanding and ability to comply. The patient is to seek outpatient follow up as noted in the discharge instructions. The patient verbalized understanding and ability to comply. The patient is discharged in stable condition. The patient was instructed to return for worsening symptoms. Medical Decision Vitals signs stable, serial abdominal exam within normal limits, Labs and imaging within normal limits, patient will be discharged with follow up PCP. DISCHARGE - Plan of care discussed with patient and questions answered. The patient was given both verbal and printed discharge instructions. The patient verbalized understanding and ability to comply. The patient is to seek outpatient follow up as noted in the discharge instructions. The patient verbalized understanding and ability to comply. The patient is discharged in stable condition. The patient was instructed to return for worsening symptoms. Medication Reconcilliation Current Medication List: was personally reviewed by me Blood Pressure Screening Patient's blood pressure: Normal blood pressure Impression Primary Impression: Abdominal pain Additional Impression: Vomiting Scribe Attestation The scribe's documentation has been prepared under my direction and personally reviewed by me in its entirety. I confirm that the note above accurately reflects all work, treatment, procedures, and medical decision making performed by me. The chart was completed utilizing [employer] voice recognition software. Grammatical errors, random word insertions, pronoun errors, and incomplete sentences are an occasional consequence of this system due to software limitations, ambient noise, and hardware issues. Any formal questions or concerns about the content, text, or information contained within the body of this dictation should be directly addressed to the physician for clarification. Departure Information Dispostion Home / Self-Care Prescriptions No Active Prescriptions or Reported Meds Referrals No Doctor, Assigned (PCP) Patient Instructions My [facility] Problem Qualifiers Primary Impression: Abdominal pain Abdominal location: unspecified location Qualified Codes: R10.9 - Unspecified abdominal pain Additional Impression: Vomiting Vomiting type: unspecified Vomiting Intractability: non-intractable Nausea presence: unspecified Qualified Codes: R11.10 - Vomiting, unspecified
[2017-11-06 13:45] LABS: BASO % 0.2 %; BASO ABS # 0.01 K/uL (0-0.2); EOS % 0.2 %; EOS ABS # 0.01 K/uL (0-0.5); HEMATOCRIT 47.5 % (42-52); HEMOGLOBIN 16.4 g/dL (14.0-18.0); LYMPH % 23.6 %; LYMPH ABS # 1.25 K/uL (1.2-3.4); MEAN CELL VOLUME 88.8 fL (80-100); MEAN CORPUSCULAR HEMOGLOBIN 30.7 pg (25-34); MEAN CORPUSCULAR HGB CONC 34.5 g/dl (32-36); MEAN PLATELET VOLUME 9.6 fL (7.4-10.4); MONO % 7.2 %; MONO ABS # 0.38 K/uL (0.11-0.59); NEUT % 68.8 %; NEUT ABS # 3.64 K/uL (1.4-6.5); PLATELET COUNT 165 K/uL (130-400); RED CELL DISTRIBUTION WIDTH CV 12.2 % (11.5-14.5); WHITE BLOOD COUNT 5.29 K/uL (4.8-10.8)
[2017-11-06 14:08] LABS: ALBUMIN 4.7 gm/dl (3.4-5.0); CALCIUM 9.7 mg/dl (8.5-10.1); CREATININE 1.12 mg/dl (0.60-1.40); POTASSIUM 3.4 mmol/L (3.5-5.1); TOTAL PROTEIN 7.7 gm/dl (6.4-8.2)
--- NOTE | 2017-11-06 14:34 | DIAGNOSTIC IMAGING REPORT ---
ABDOMEN 2VIEW W/PA CHEST RTN CLINICAL HISTORY: 22 years-old Male presenting with vomiting abdominal pain. TECHNIQUE: PA view of the chest and supine and upright views of the abdomen were obtained. COMPARISON: 10/09/2016. FINDINGS: Cardiomediastinal silhouette normal. Lungs and pleural spaces clear. Mild gaseous distention of small bowel in the midabdomen. No bowel obstruction. No gross pneumoperitoneum. Allowing for bowel gas and stool, no calcifications to suggest nephrolithiasis. Osseous structures normal. IMPRESSION: 1. No acute cardiopulmonary disease. 2. Mild gaseous distention of small bowel. This may be normal or indicate mild ileus or enteritis. No bowel obstruction or free air. Electronically signed by: Ellis Spann M.D. 11/06/2017 2:32 PM Dictated Date/Time: 11/06/2017 2:30 PM
[2017-11-06 14:55] VITALS: BP 119/67; PULSE 69; O2SAT 98
== END 2017-11-06 15:06 | disposition home or self-care (01) ==
LOC: C.EDB 12:57 → C.EDC 15:06
DX: R11.10 Vomiting, unspecified (principal); F17.200 Nicotine dependence, unspecified, uncomplicated